=== PATIENT | female | born 1985 | race Asian ===

== ENCOUNTER 2020-07-14 10:15 | Emergency (ER) | payer BC ==
[~2020-07-14] VITALS: Ht 162.6 cm; Wt 50.3 kg
[2020-07-14 10:29] VITALS: BP 104/60; Ht 162.6 cm; Wt 50.3 kg
== END 2020-07-14 11:19 | disposition home or self-care (01) ==
LOC: ED 10:15
DX: L72.0 Epidermal cyst (principal)

== ENCOUNTER 2020-08-03 09:35 | Emergency (ER) | payer BC ==
[~2020-08-03] VITALS: Ht 160 cm; Wt 49.4 kg
[2020-08-03 09:45] VITALS: BP 101/64
[2020-08-03 10:28] LABS: PLATELET COUNT 163 x10^3mcL (179-408); RED CELL DISTRIBUTION WIDTH 12.5 % (12.3-17.7)
[2020-08-03 10:36] LABS: CALCIUM 8.3 mg/dL (8.5-10.1); CARBON DIOXIDE 28.7 mmol/L (21-32); CHLORIDE SERUM 103 mmol/L (98-107); GFR1 > 60 mL/min; GLUCOSE SERUM 86 mg/dL (74-106); POTASSIUM SERUM 3.8 mmol/L (3.5-5.1); SODIUM SERUM 139 mmol/L (136-145)
[2020-08-03 10:42] LABS: ALBUMIN 3.7 g/dL (3.4-5.0); ALKALINE PHOSPHATASE 50 U/L (46-116); ALT/SGPT 29 U/L (14-59); AST/SGOT 30 U/L (15-37); BILIRUBIN TOTAL 0.46 mg/dL (0.20-1.00); TOTAL PROTEIN, SERUM 7.8 g/dL (6.4-8.2)
[2020-08-03 11:14] LABS: BASOPHIL 1 % (0-2); MONOCYTE 9 % (0-7); PLATELET MORPHOLOGY PLATELETS NORMAL; SEGMENTED NEUTROPHILS 32 % (37-75); rbc morphology (normal/abnorm) NORMAL (NORMAL)
[2020-08-04 07:07] LABS: RAPID PLASMA REAGIN Non Reactive (Non Reactive)
== END 2020-08-03 11:43 | disposition home or self-care (01) ==
LOC: ED 09:35
PROVIDERS: Emergency Medicine
DX: R59.0 Localized enlarged lymph nodes (principal); R21 Rash and other nonspecific skin eruption; Z91.048 Other nonmedicinal substance allergy status